=== PATIENT | female | born 1990 | race Caucasian/White ===

== ENCOUNTER 2020-03-02 20:29 | Emergency (ER) | payer SELFPAY ==
[~2020-03-02] VITALS: Ht 157.5 cm; Wt 50.0 kg
[2020-03-02] MEDS: IV NORMAL SALINE 1000ML BAG 1,000 ML IV ONE ×2 (21:15→21:46)
[2020-03-02] MEDS ORDERED: IV NORMAL SALINE 1000ML BAG 1,000 ML IV ONE (21:15)
[2020-03-02] MEDS ORDERED: KETOROLAC 15 MG/ML VIAL. IVP ONE (21:30)
[2020-03-02] MEDS ORDERED: FAMOTIDINE 20 MG/2 ML VIAL IVP ONE (21:30)
[2020-03-02] MEDS ORDERED: METOCLOPRAMIDE HCL 10 MG/2 ML VIAL. IVP ONE (21:30)
--- NOTE | 2020-03-02 21:46 | RAD ---
Abdominal Series dated 03/02/2020. No comparison available. Clinical Indication: Abdominal pain. Findings: Single upright PA view the chest shows normal heart and mediastinal contours. The lungs are clear wit hout focal consolidation. Vascular interstitium is within normal limits. Flat and upright views of the abdomen show nondilated gas filled loops of bowel. No air-fluid level o n the upright view. Small amount stool within the colon. No abnormal calcifications are identified. T here is no evidence of pneumoperitoneum. Impression chest: No acute radiographic abnormality. Impression abdomen: Non-obstructive bowel gas pattern. Electronically signed by: Lb James MD (03/02/2020 9:43 PM) [id number]
[2020-03-02 22:24] LABS: BILIRUBIN,URINE NEGATIVE (NEG); CLARITY,URINE CLEAR; COLOR,URINE YELLOW; NITRITE,URINE NEGATIVE (NEG); PROTEIN,URINE NEGATIVE (NEG-TRACE); UROBILINOGEN,URINE 0.2 mg/dL (0.2 mg/dL)
[2020-03-02 22:30] VITALS: BP 110/60
[2020-03-02 22:34] LABS: BACTERIA,URINE FEW /HPF (0-FEW); RBC,URINE 0 /HPF (0-2)
--- NOTE | 2020-03-02 22:36 | PHYS DOC ---
Past Medical History Past Medical History: Anxiety Past Surgical History: Appendectomy, Tonsillectomy Smoking Status: Never Smoker Alcohol Use: Rarely General Adult EDM: Chief Complaint: MULTIPLE COMPLAINTS HPI: HPI: 29-year-old female history of muscular dystrophy, takes trazodone, presents the ED with complaints of Review of Systems: Review of Systems: Constitutional: Denies fever or chills. [] Eyes: Denies change in visual acuity. [] HENT: Denies nasal congestion or sore throat. [] Respiratory: Denies cough or shortness of breath. [] Cardiovascular: Denies chest pain or edema. [] GI: Denies abdominal pain, nausea, vomiting, bloody stools or diarrhea. [] : Denies dysuria. [] Musculoskeletal: Denies back pain or joint pain. [] Integument: Denies rash. [] Neurologic: Denies headache, focal weakness or sensory changes. [] Endocrine: Denies polyuria or polydipsia. [] Lymphatic: Denies swollen glands. [] Psychiatric: Denies depression or anxiety. [] Heart Score: Risk Factors: Risk Factors: DM, Current or recent (<one month) smoker, HTN, HLP, family history of CAD, obesity. Risk Scores: Score 0 - 3: 2.5% MACE over next 6 weeks - Discharge Home Score 4 - 6: 20.3% MACE over next 6 weeks - Admit for Clinical Observation Score 7 - 10: 72.7% MACE over next 6 weeks - Early Invasive Strategies Current Medications: Current Medications Medications (Trade) Dose Ordered Sig/Tez Start Time Stop Time Status Last Admin Dose Admin Famotidine (Pepcid Vial) 20 mg 1X ONCE 03/02/20 21:30 03/02/20 21:31 DC 03/02/20 21:47 20 MG Ketorolac Tromethamine (Toradol 15mg Vial) 15 mg 1X ONCE 03/02/20 21:30 03/02/20 21:31 DC 03/02/20 21:47 15 MG Metoclopramide HCl (Reglan Vial) 10 mg 1X ONCE 03/02/20 21:30 03/02/20 21:31 DC 03/02/20 21:46 10 MG Sodium Chloride 1,000 ml @ 1,000 mls/hr 1X ONCE 03/02/20 21:15 03/02/20 22:14 DC 03/02/20 21:15 1,000 MLS/HR Allergies: Allergies: Allergies Coded Allergies Type Severity Reaction Last Updated Verified amoxicillin Allergy Intermediate RASH 03/02/20 Yes Physical Exam: PE: Constitutional: Well developed, well nourished, no acute distress, non-toxic appearance. HENT: Normocephalic, atraumatic, Eyes: EOMI, conjunctiva normal, no discharge. Neck: Normal range of motion, supple, Cardiovascular: S1/2 present, regular rhythm Lungs & Thorax: Speaking in full sentences, bilateral equal chest rise, no tachypnea or increased work of breathing Abdomen: soft, no tenderness, Skin: Warm, dry, no erythema, no rash. [] Back: No tenderness, no CVA tenderness. [] Extremities: No tenderness, no cyanosis, no edema Neurologic: Alert and oriented X 3, normal motor function, normal sensory function, no focal deficits noted. [] Psychologic: Affect normal, judgement normal, mood normal. [] Current Patient Data: Labs: Laboratory Tests Test 03/02/20 21:15 03/02/20 22:18 Glucose (Fingerstick) 93 mg/dL (70-99) POC Urine HCG, Qualitative Hcg negative (Negative) Vital Signs: Vital Signs Date Time Temp Pulse Resp B/P (MAP) Pulse Ox O2 Delivery O2 Flow Rate FiO2 03/02/20 20:43 98.0 120 16 104/66 (79) 98 Room Air 98.0 EKG: EKG: [] Radiology/Procedures: Radiology/Procedures: [] Course & Med Decision Making: Course & Med Decision Making Pertinent Labs and Imaging studies reviewed. (See chart for details) Patient purchase a from home permanently for medical papers. Per rn, were unable to obtain blood work for patient requested to leave. States she has a s ick son at home that she has to attend to. The patient has decided to leave our facility against medical advice. I have assessed patient's ability to make informed decision and feel the patient has the capacity to comprehend information regarding the current medical condition and appreciates the impact of the disease or condition and the consequences of various options for treatment, including foregoing treatment. The patient possesses the ability to evaluate all treatment options, comparing the risks and benefits of each option, communicate his or her choice in a consistent manner over time, and is able to make rational choices. I explained to the patient further testing, treatment, and evaluation I would like to perform in the emergency department visit as well as any possible alternatives that can be accomplished in a timely manner. I have outlined the possible risks of foreg oing any or all of these interventions and the patient understands and acknowledges that the decision to leave may result in undesirable consequences such as , permanent disability, and/or loss of current lifestyle. Even though leaving AMA is not ideal, I have instructed the patient to follow any discharge instructions given, take any medications prescribed, and resume care a s soon as possible with another provider. This conversation was witnessed by another member of the emergency department staff and we clearly communicated the patient is welcome to return anytime to continue care at our facility. [place] Disclaimer: [place] Disclaimer: This electronic medical record was generated, in whole or in part, using a voice recognition dictation system. Departure Departure Impression: Primary Impression: Nausea vomiting and diarrhea Disposition: 07 AMA/ELOPED/LWBS Condition: STABLE Referrals: UNKNOWN PCP NAME (PCP) UMANG WALLACE DO Mar 02, 2020 22:36
[2020-03-02 22:50] LABS: INFLUENZA A PATIENT NEGATIVE (NEGATIVE)
[2020-03-02 22:51] LABS: INFLUENZA B PATIENT NEGATIVE (NEGATIVE)
--- NOTE | 2020-03-04 09:45 | NUR ---
IP: Attempted to contact pt concerning COVID results. No answer. Voicemail full, unable to leave a message for return call.
== END 2020-03-02 22:33 | disposition left against medical advice (07) ==
LOC: ER 20:29
DX: R11.2 Nausea with vomiting, unspecified (principal); R19.7 Diarrhea, unspecified; Z20.828 Contact with and (suspected) exposure to other viral communicable diseases; Z90.89 Acquired absence of other organs; G71.00 Muscular dystrophy, unspecified; Z88.1 Allergy status to other antibiotic agents
CPT/HCPCS: 74022; 81001; 81025; 82962; 87086; 87804; 96361; 96374; 96375; 99285; J1885; J2765; J3490; J7030; U0003